=== PATIENT | male | born 1965 | race Caucasian/White ===

== ENCOUNTER 2017-03-31 09:42 | Emergency (ER) | payer SELFPAY ==
[~2017-03-31] VITALS: Ht 170.2 cm; Wt 60.0 kg
[~2017-03-31 09:42] MED LIST: QUET100 PO
[2017-03-31 09:43] VITALS: BP 100/59; PULSE 80; RESP 15; TEMP 98.2; O2SAT 100
--- NOTE | 2017-03-31 10:01 | PD ---
HPI Chief Complaint: Abdominal Pain Time Seen by Provider: 10:01 Travel History International Travel<30 days: No Contact w/Intl Traveler<30days: No Traveled to known affect area: No History of Present Illness HPI 51-year-old male came to the emergency room with history of right inguinal hernia that he noticed yesterday. Patient says that was the first time he noticed a bump. He was able to push it back in. He is here now because he has some burning sensation down there. No history of vomiting. Patient says is occasionally constipated. He does a child where he was lifting heavy weights. Vital signs were stable in triage. [facility] Past Medical History Narrative Medical List of his past medical, surgical, social and family history was reviewed from the nursing note. Bipolar Disorder: Yes Anxiety: Yes Depression: Yes Diminished Hearing: No Immunizations Current: Yes Past Surgical History Other Surgery: Yes (FACIAL RECONSTRUCTION) Social History Alcohol Use: Yes (ABOUT 3 TIMES PER WEEK) Tobacco Use: Yes (1 PPD) Substance Use: Yes (COCAINE) Allergies-Medications (Allergen,Severity, Reaction): Coded Allergies: Mellaril (Verified Allergy, Severe, TONGUE SWELLING, 08/07/16) Comments List of his allergies reviewed from the nursing note. Reported Meds & Prescriptions Reported Meds & Active Scripts Active Miralax Powder (Polyethylene Glycol 3350 Powder) 17 Gm Powd 17 Gm PO DAILY Mix and dissolve one measuring cap-ful (17 grams) in water or juice. Quetiapine Fumarate 100 Mg Tab 100 Mg PO HS 4 Days Narrative Medication List of his home medications reviewed from the nursing note. Review of Systems Except as stated in HPI: all other systems reviewed are Neg Physical Exam Narrative GENERAL: Awake, alert, no obvious distress SKIN: Focused skin assessment warm/dry. HEAD: Atraumatic. Normocephalic. EYES: Pupils equal and round. No scleral icterus. No injection or drainage. ENT: No nasal bleeding or discharge. Mucous membranes pink and moist. NECK: Trachea midline. No JVD. CARDIOVASCULAR: Regular rate and rhythm. No murmur appreciated. RESPIRATORY: No accessory muscle use. Clear to auscultation. Breath sounds equal bilaterally. GASTROINTESTINAL: Abdomen soft, non-tender, nondistended. Hepatic and splenic margins not palpable. Right sided inguinal ring is patent and I can introduce to fingers. No incarcerated hernia. MUSCULOSKELETAL: No obvious deformities. No clubbing. No cyanosis. No edema. NEUROLOGICAL: Awake and alert. No obvious cranial nerve deficits. Motor grossly within normal limits. Normal speech. PSYCHIATRIC: Appropriate mood and affect; insight and judgment normal. Data Data Last Documented VS Vital Signs Date Time Temp Pulse Resp B/P Pulse Ox O2 Delivery O2 Flow Rate FiO2 03/31/17 10:12 78 16 111/73 99 Room Air 03/31/17 09:43 98.2 MDM Medical Decision Making Medical Screen Exam Complete: Yes Emergency Medical Condition: Yes Medical Record Reviewed: Yes Differential Diagnosis Inguinal hernia Narrative Course 10:08 AM patient will be discharged home. He was given instructions. I'll give him the name of the general surgeon who is on today so that he can make an appointment to get an elective surgery. Procedures EKG Prior to Arrival: No Diagnosis Primary Impression: Inguinal hernia Qualified Code: K40.90 - Unilateral inguinal hernia without obstruction or gangrene, recurrence not specified Referrals: Stanislaw Mobley MD 2 days Additional Instructions: Please return to the ER if the condition worsens or any other new concerns. As long as the loops of intestine that's herniating out can be pushed back in you will be okay. Once you are unable to do that and they are strangulated you need to come back to the emergency room. Do not lift any heavy weight since it will make the hernia worse. Try to get some abdominal wall support belts. Call the surgeon whose name and number been given to you for an appointment for elective surgery. Constipation will make it worse especially when you try to strain. Hence he should take the stool softener at all times still the hernias fixed. Med/Other Pt SpecificInfo: Prescription(s) given Scripts Polyethylene Glycol 3350 Powder (Miralax Powder)17 Gm Powd17 Gm PO DAILY #1 BOTTLE Ref 0 Mix and dissolve one measuring cap-ful (17 grams) in water or juice. Prov:Gabo Vilchis MD 03/31/17 Disposition: 01 DISCHARGE HOME Condition: Stable Gabo Vilchis MD March 31, 2017 10:01
[2017-03-31] MEDS ORDERED: MIRA33504 PO (10:11)
[2017-03-31 10:12] VITALS: BP 111/73; PULSE 78; RESP 16; O2SAT 99
== END 2017-03-31 10:48 | disposition home or self-care (01) ==
LOC: NEPD 09:42
DX: K40.90 Unilateral inguinal hernia, without obstruction or gangrene, not specified as recurrent (principal)
CPT/HCPCS: 99283

== ENCOUNTER 2017-04-03 07:47 | Emergency (ER) | payer SELFPAY ==
[~2017-04-03] VITALS: Ht 170.2 cm; Wt 59.0 kg
[~2017-04-03 07:47] MED LIST changes: +MIRA33504 PO
[2017-04-03 07:49] VITALS: BP 116/70; PULSE 80; RESP 20; TEMP 98.6; O2SAT 98
--- NOTE | 2017-04-03 08:12 | PD ---
HPI Chief Complaint: Psychiatric Symptoms Time Seen by Provider: 07:59 Travel History International Travel<30 days: No Contact w/Intl Traveler<30days: No Traveled to known affect area: No History of Present Illness HPI 51-year-old male presents with increasing suicidal thoughts over the past week. He states yesterday he went to [facility] and hearing talk about demons made him have difficulty sleeping and with increased thoughts of wanting to hurt himself. He states he has access to knives and has cut himself before but states this time he would just hang himself and get it over with. He denies other complaints at this time. He states that he has been drug and alcohol free for at least a year now. PFSH Past Medical History Bipolar Disorder: Yes Anxiety: Yes Depression: Yes Diminished Hearing: No Immunizations Current: Yes Past Surgical History Other Surgery: Yes (FACIAL RECONSTRUCTION) Social History Alcohol Use: No Tobacco Use: Yes Substance Use: Yes (COCAINE) Allergies-Medications (Allergen,Severity, Reaction): Coded Allergies: Mellaril (Verified Allergy, Severe, TONGUE SWELLING, 08/07/16) Reported Meds & Prescriptions Reported Meds & Active Scripts Active No Active Prescriptions or Reported Medications Review of Systems Except as stated in HPI: all other systems reviewed are Neg Physical Exam Narrative GENERAL: Well-nourished, well-developed patient. SKIN: Warm and dry. HEAD: Normocephalic and atraumatic. EYES: No injection or drainage. ENT: No nasal drainage noted. NECK: Supple, trachea midline. CARDIOVASCULAR: Regular rate and rhythm RESPIRATORY: No increased effort. No accessory muscle use. GASTROINTESTINAL: Abdomen soft, non-tender, nondistended. NEUROLOGICAL: Awake and alert. Motor and sensory grossly within normal limits. Normal speech. Data Data Last Documented VS Vital Signs Date Time Temp Pulse Resp B/P Pulse Ox O2 Delivery O2 Flow Rate FiO2 04/03/17 08:02 18 04/03/17 07:49 98.6 80 116/70 98 Room Air Orders Complete Blood Count With Diff (04/03/17 08:00) Basic Metabolic Panel (Bmp) (04/03/17 08:00) Psych Screen (04/03/17 08:00) Drug Screen, Random Urine (04/03/17 08:00) Alcohol (Ethanol) (04/03/17 08:00) Diet Regular Basic (04/03/17 Dinner) Labs Laboratory Tests Test 04/03/17 04/03/17 08:06 08:42 White Blood Count 4.3 TH/MM3 Red Blood Count 4.52 MIL/MM3 Hemoglobin 14.6 GM/DL Hematocrit 44.0 % Mean Corpuscular Volume 97.3 FL Mean Corpuscular Hemoglobin 32.3 PG Mean Corpuscular Hemoglobin 33.2 % Concent Red Cell Distribution Width 13.3 % Platelet Count 170 TH/MM3 Mean Platelet Volume 7.6 FL Neutrophils (%) (Auto) 52.4 % Lymphocytes (%) (Auto) 33.3 % Monocytes (%) (Auto) 11.5 % Eosinophils (%) (Auto) 1.6 % Basophils (%) (Auto) 1.2 % Neutrophils # (Auto) 2.2 TH/MM3 Lymphocytes # (Auto) 1.4 TH/MM3 Monocytes # (Auto) 0.5 TH/MM3 Eosinophils # (Auto) 0.1 TH/MM3 Basophils # (Auto) 0.1 TH/MM3 CBC Comment DIFF FINAL Differential Comment Sodium Level 141 MEQ/L Potassium Level 4.1 MEQ/L Chloride Level 106 MEQ/L Carbon Dioxide Level 31.1 MEQ/L Anion Gap 4 MEQ/L Blood Urea Nitrogen 13 MG/DL Creatinine 0.99 MG/DL Estimat Glomerular Filtration 79 ML/MIN Rate Random Glucose 86 MG/DL Calcium Level 9.3 MG/DL Ethyl Alcohol Level LESS THAN 3 MG/DL Urine Opiates Screen NEG Urine Barbiturates Screen NEG Urine Amphetamines Screen NEG Urine Benzodiazepines Screen NEG Urine Cocaine Screen NEG Urine Cannabinoids Screen NEG MDM Medical Decision Making Medical Screen Exam Complete: Yes Emergency Medical Condition: Yes Medical Record Reviewed: Yes (past history confirmed) Interpretation(s) CBC & BMP Diagram 04/03/17 08:06 Differential Diagnosis Depression, electrolyte abnormality, anxiety, suicidal ideation Narrative Course Will check blood work for medical clearance. Patient will be closely monitored and Mental health screening discussed with the patient. Psychiatric screen ordered. He understands if he changes his mind I will place a Freeman act as he is not safe for discharge labs wnl, medically cleared Diagnosis Primary Impression: Depressed affect Scripts No Active Prescriptions or Reported Meds Herlinda Parks MD April 03, 2017 08:12
[2017-04-03 08:36] LABS: AUTOMATED NEUTROPHIL # 2.2 TH/MM3 (1.8-7.7); BASOPHIL # 0.1 TH/MM3 (0-0.2); BASOPHIL % 1.2 % (0.0-2.0); EOSINOPHIL # 0.1 TH/MM3 (0-0.4); EOSINOPHIL % 1.6 % (0.0-4.0); HEMO FLAGS DIFF FINAL; LYMPH % 33.3 % (9.0-44.0); LYMPHOCYTE # 1.4 TH/MM3 (1.0-4.8); MEAN CELL VOLUME 97.3 FL (80.0-100.0); MEAN CORPUSCULAR HEMOGLOBIN 32.3 PG (27.0-34.0); MEAN CORPUSCULAR HGB CONC 33.2 % (32.0-36.0); MONO % 11.5 % (0.0-8.0); NEUT % 52.4 % (16.0-70.0); PLATELET COUNT 170 TH/MM3 (150-450); RED BLOOD COUNT 4.52 MIL/MM3 (4.50-5.90); RED CELL DISTRIBUTION WIDTH 13.3 % (11.6-17.2); WHITE BLOOD COUNT 4.3 TH/MM3 (4.0-11.0)
[2017-04-03 08:52] LABS: ANION GAP 4 MEQ/L (5-15); BICARBONATE 31.1 MEQ/L (21.0-32.0); BLOOD UREA NITROGEN 13 MG/DL (7-18); CHLORIDE 106 MEQ/L (98-107); GLOMERULAR FILTRATION RATE 79 ML/MIN (>89); POTASSIUM 4.1 MEQ/L (3.5-5.1); SODIUM (NA) 141 MEQ/L (136-145)
[2017-04-03 09:12] LABS: AMPHETAMINE, URINE NEG (NEG); BARBITURATES, URINE NEG (NEG); COCAINE, URINE NEG (NEG)
[2017-04-03 17:46] VITALS: BP 130/79; PULSE 90; RESP 20; TEMP 98; O2SAT 95
== END 2017-04-03 18:20 | disposition home or self-care (01) ==
LOC: NEPE 07:47 → NEPJ 18:20
DX: F32.9 Major depressive disorder, single episode, unspecified (principal); F14.90 Cocaine use, unspecified, uncomplicated; Z72.0 Tobacco use
CPT/HCPCS: 80048; 80307; 85025; 99284

== ENCOUNTER 2017-07-10 13:58 | Emergency (ER) | payer OTHER ==
[~2017-07-10] VITALS: Ht 172.7 cm; Wt 62.0 kg
[2017-07-10 14:00] VITALS: BP 101/69; PULSE 98; RESP 15; TEMP 98.3; O2SAT 96
--- NOTE | 2017-07-10 14:05 | PD ---
Physical Exam Date Seen by Provider: Jul 10, 2017 Time Seen by Provider: 14:04 Narrative 52 YOWM C/O R INGUINAL HERNIA.X 2-3 MONTHS. ALSO L ARM RASH Data Data Last Documented VS Vital Signs Date Time Temp Pulse Resp B/P Pulse Ox O2 Delivery O2 Flow Rate FiO2 07/10/17 14:00 98.3 98 15 101/69 96 MDM Supervised Visit with SALLIE: No Scripts No Active Prescriptions or Reported Meds Jacek Ibrahim Jul 10, 2017 14:05
--- NOTE | 2017-07-10 18:06 | PD ---
HPI Chief Complaint: Abdominal Pain Time Seen by Provider: 18:05 Travel History International Travel<30 days: No Contact w/Intl Traveler<30days: No Traveled to known affect area: No History of Present Illness HPI 52 year old male presents to the emergency department for evaluation of abdominal pain for 2 days. Patient states he has right hernia for several months. He states that it well, now every time he stands up. He has pain in this location, but also diffuse abdominal pain. He is unsure if they are related. He denies any fevers or chills. No chest pain shortness breath. No nausea or vomiting. No diarrhea or constipation. He denies a previous abdominal surgeries. He has not followed up with her primary care physician or general surgeon for his hernia. PFSH Past Medical History Bipolar Disorder: Yes Anxiety: Yes Depression: Yes Diminished Hearing: No Immunizations Current: Yes Past Surgical History Other Surgery: Yes (FACIAL RECONSTRUCTION) Social History Alcohol Use: No (DENIES) Tobacco Use: Yes Substance Use: No (REPORTS BEING CLEAN AND SOBER FOR 6 MONTHS) Allergies-Medications (Allergen,Severity, Reaction): Coded Allergies: thioridazine (Unverified Allergy, Severe, TONGUE SWELLING, 07/10/17) Reported Meds & Prescriptions Reported Meds & Active Scripts Active No Active Prescriptions or Reported Medications Review of Systems Except as stated in HPI: all other systems reviewed are Neg Physical Exam Narrative GENERAL: Well-nourished, well-developed male patient, afebrile. SKIN: Focused skin assessment warm/dry. HEAD: Normocephalic. Atraumatic. EYES: No scleral icterus. No injection or drainage. NECK: Supple, trachea midline. No JVD or lymphadenopathy. CARDIOVASCULAR: Regular rate and rhythm without murmurs, gallops, or rubs. RESPIRATORY: Breath sounds equal bilaterally. No accessory muscle use. Lungs sounds are clear to auscultation. GASTROINTESTINAL: Abdomen soft and nondistended. Patient has diffuse tenderness to palpation, worse the left lower quadrant. He has right inguinal hernia that is easily reducible. MUSCULOSKELETAL: No cyanosis, or edema. BACK: Nontender without obvious deformity. No CVA tenderness. Data Data Last Documented VS Vital Signs Date Time Temp Pulse Resp B/P Pulse Ox O2 Delivery O2 Flow Rate FiO2 07/10/17 19:08 72 16 114/75 99 Room Air 07/10/17 14:00 98.3 Orders Complete Blood Count With Diff (07/10/17 18:01) Comprehensive Metabolic Panel (07/10/17 18:01) Lipase (07/10/17 18:01) Ct Abd/Pel W Iv Contrast(Rout) (07/10/17 18:01) Iv Access Insert/Monitor (07/10/17 18:01) Ecg Monitoring (07/10/17 18:01) Oximetry (07/10/17 18:01) Sodium Chloride 0.9% Flush (Ns Flush) (07/10/17 18:15) Urinalysis - C+S If Indicated (07/10/17 18:01) Oral Contrast - Adult (07/10/17 18:16) Diatrizoate Liq ( Gastroview Liq) (07/10/17 18:30) Iohexol 350 Inj (Omnipaque 350 Inj) (07/10/17 20:03) Labs Laboratory Tests Test 07/10/17 18:30 White Blood Count 5.7 TH/MM3 Red Blood Count 4.79 MIL/MM3 Hemoglobin 16.0 GM/DL Hematocrit 46.6 % Mean Corpuscular Volume 97.2 FL Mean Corpuscular Hemoglobin 33.4 PG Mean Corpuscular Hemoglobin 34.4 % Concent Red Cell Distribution Width 13.0 % Platelet Count 185 TH/MM3 Mean Platelet Volume 8.4 FL Neutrophils (%) (Auto) 43.3 % Lymphocytes (%) (Auto) 39.0 % Monocytes (%) (Auto) 7.6 % Eosinophils (%) (Auto) 3.0 % Basophils (%) (Auto) 7.1 % Neutrophils # (Auto) 2.4 TH/MM3 Lymphocytes # (Auto) 2.2 TH/MM3 Monocytes # (Auto) 0.4 TH/MM3 Eosinophils # (Auto) 0.2 TH/MM3 Basophils # (Auto) 0.4 TH/MM3 CBC Comment DIFF FINAL Differential Comment Sodium Level 139 MEQ/L Potassium Level 4.6 MEQ/L Chloride Level 105 MEQ/L Carbon Dioxide Level 28.4 MEQ/L Anion Gap 6 MEQ/L Blood Urea Nitrogen 17 MG/DL Creatinine 0.83 MG/DL Estimat Glomerular Filtration 97 ML/MIN Rate Random Glucose 91 MG/DL Calcium Level 9.1 MG/DL Total Bilirubin 0.4 MG/DL Aspartate Amino Transf 78 U/L (AST/SGOT) Alanine Aminotransferase 146 U/L (ALT/SGPT) Alkaline Phosphatase 59 U/L Total Protein 8.2 GM/DL Albumin 4.2 GM/DL Lipase 117 U/L [facility] Medical Decision Making Medical Screen Exam Complete: Yes Emergency Medical Condition: Yes Medical Record Reviewed: Yes Interpretation(s) Last Impressions Abdomen/Pelvis CT 07/10/17 1801 Signed Impressions: Service Date/Time: June 19:54 - CONCLUSION: 1. No acute findings. Mild constipation. Appendix appears normal. No hydronephrosis or obstructive uropathy. Small hiatal hernia. Jacek Egan MD Differential Diagnosis Reducible hernia versus diverticulitis versus pancreatitis versus gastritis Narrative Course 52-year-old male presents to the emergency department for evaluation of abdominal pain for 2 days. CBC, CMP, lipase, UA, CT abdomen/pelvis are ordered and pending. CBC shows no acute abnormality. CMP shows elevated AST ALT, no acute changes. Lipase is 117. CT abdomen/pelvis shows no acute findings. Mild constipation. Appendix appears normal. No hydronephrosis or obstructive uropathy. Small hiatal hernia. Laboratory results and imaging is reassuring. Patient instructed to follow-up with his primary care physician or general surgeon. He verbalizes agreement and understanding. The patient was discharged in stable condition with instructions, including return instructions and follow up instructions. Diagnosis Primary Impression: Inguinal hernia Qualified Code: K40.90 - Unilateral inguinal hernia without obstruction or gangrene, recurrence not specified Referrals: Primary Care Physician call for appointment Patient Instructions: General Instructions, Inguinal Hernia (ED) Additional Instructions: Follow-up with your primary care physician and general surgeon for hernia repair. Return to the emergency department for any acute worsening of symptoms Med/Other Pt SpecificInfo: No Change to Meds Scripts No Active Prescriptions or Reported Meds Disposition: DISCHARGE HOME Phyllis Allison SANA Jul 10, 2017 18:06
[2017-07-10] MEDS ORDERED: SODIUM CHLORIDE 0.9% FLUSH 10 ML FLUSH IV FLUSH PRN (18:15)
[2017-07-10 18:20] VITALS: RESP 18; O2SAT 97
[2017-07-10 18:28] VITALS: BP 110/69; PULSE 55; RESP 18; O2SAT 99
[2017-07-10] MEDS ORDERED: DIATRIZOATE MEGLUM/DIATRIZOATE SOD 9 ML CUP ONE (18:30)
[2017-07-10 19:08] VITALS: BP 114/75; PULSE 72; RESP 16; O2SAT 99
[2017-07-10 19:13] LABS: AUTOMATED NEUTROPHIL # 2.4 TH/MM3 (1.8-7.7); BASOPHIL # 0.4 TH/MM3 (0-0.2); BASOPHIL % 7.1 % (0.0-2.0); EOSINOPHIL # 0.2 TH/MM3 (0-0.4); HEMATOCRIT 46.6 % (39.0-51.0); LYMPHOCYTE # 2.2 TH/MM3 (1.0-4.8); MEAN CELL VOLUME 97.2 FL (80.0-100.0); MEAN CORPUSCULAR HEMOGLOBIN 33.4 PG (27.0-34.0); MEAN CORPUSCULAR HGB CONC 34.4 % (32.0-36.0); MONO % 7.6 % (0.0-8.0); NEUT % 43.3 % (16.0-70.0); PLATELET COUNT 185 TH/MM3 (150-450); RED BLOOD COUNT 4.79 MIL/MM3 (4.50-5.90); WHITE BLOOD COUNT 5.7 TH/MM3 (4.0-11.0)
[2017-07-10 19:35] LABS: HEMO FLAGS DIFF FINAL
[2017-07-10 19:36] LABS: ALT (GPT) 146 U/L (12-78); ANION GAP 6 MEQ/L (5-15); AST (GOT) 78 U/L (15-37); BICARBONATE 28.4 MEQ/L (21.0-32.0); BLOOD UREA NITROGEN 17 MG/DL (7-18); CHLORIDE 105 MEQ/L (98-107); GLOMERULAR FILTRATION RATE 97 ML/MIN (>89); POTASSIUM 4.6 MEQ/L (3.5-5.1); SODIUM (NA) 139 MEQ/L (136-145)
[2017-07-10 19:38] LABS: ALKALINE PHOSPHATASE 59 U/L (45-117); TOTAL BILIRUBIN ADULT 0.4 MG/DL (0.2-1.0)
[2017-07-10] MEDS ORDERED: IOHEXOL 350 MG/ML 10 ML VIAL (for RAD DIAG) IV ONE (20:03)
--- NOTE | 2017-07-10 20:32 | RADRPT ---
EXAM DATE/TIME: 07/10/2017 19:54 [facility] COMPARISON: No previous studies available for comparison. INDICATIONS : Lower right sided abdominal pain. IV CONTRAST: 92 cc Omnipaque 350 (iohexol) IV ORAL CONTRAST: No oral contrast ingested. RADIATION DOSE: 9.96 CTDIvol (mGy) MEDICAL HISTORY : Hernia, inguinal. SURGICAL HISTORY : None. ENCOUNTER: Initial ACUITY: 1 day PAIN SCALE: 5/10 LOCATION: Right upper quadrant TECHNIQUE: Volumetric scanning of the abdomen and pelvis was performed. Using automated exposure control and ad justment of the mA and/or kV according to patient size, radiation dose was kept as low as reasonably achievable to obtain optimal diagnostic quality images. DICOM format image data is available electro nically for review and comparison. FINDINGS: Lung bases are clear. No acute findings in the liver, spleen, adrenals, kidneys or pancreas. No gallstones or biliary ducta l dilatation. There is mild constipation. Small hiatal hernia. CONCLUSION: 1. No acute findings. Mild constipation. Appendix appears normal. No hydronephrosis or obstructive ur opathy. Small hiatal hernia. Jacek Egan MD on July 10, 2017 at 20:28 Board Certified Radiologist. This report was verified electronically.
[2017-07-10] MEDS ORDERED: KETOROLAC TROMETHAMINE 30 MG/ML (IVP) VIAL IV PUSH ONE (21:00)
[2017-07-10 21:06] VITALS: BP 116/80
[2017-07-10 21:23] LABS: BLOOD, URINE NEG (NEG); GLUCOSE,URINE NEG (NEG); KETONE, URINE NEG (NEG); NITRITE,URINE NEG (NEG); PH, URINE 6.5 (5.0-8.5); URINE COLOR LIGHT-YELLOW (YELLW/STRAW)
[2017-07-10 21:28] LABS: COMMENT (UR) CULT NOT INDICATED; CULTURE IF INDICATED CULT NOT INDICATED
== END 2017-07-10 21:13 | disposition home or self-care (01) ==
LOC: NEPD 13:58 → NED 13:58 → NEPD 21:13
DX: K40.90 Unilateral inguinal hernia, without obstruction or gangrene, not specified as recurrent (principal); K59.00 Constipation, unspecified; K44.9 Diaphragmatic hernia without obstruction or gangrene; F31.9 Bipolar disorder, unspecified; F41.9 Anxiety disorder, unspecified; Z72.0 Tobacco use
CPT/HCPCS: 74177; 80053; 81001; 83690; 85025; 96374; 99285; J1885; Q9963; Q9967

== ENCOUNTER 2017-11-27 10:01 | Emergency (ER) | payer OTHER ==
[~2017-11-27] VITALS: Ht 172.7 cm; Wt 58.0 kg
[2017-11-27 10:12] VITALS: BP_SYST 109; BP_DIAS 10; BP_DIAS 70; PULSE 80; RESP 15; TEMP 98; O2SAT 99
--- NOTE | 2017-11-27 10:21 | PD ---
HPI Chief Complaint: si Time Seen by Provider: 10:12 Travel History International Travel<30 days: No Contact w/Intl Traveler<30days: No Traveled to known affect area: No History of Present Illness HPI brought in by freddy HAMPTON due to suicidal threats made about using drugs to kill himself...roland acted by freddy hampton. patient denies any ingestions does state that he has taken crack cocaine today, and has been off his meds for at least 3 months (seroquel). PFSH Past Medical History Bipolar Disorder: Yes Anxiety: Yes Depression: Yes Diminished Hearing: No Immunizations Current: Yes Past Surgical History Other Surgery: Yes (FACIAL RECONSTRUCTION) Social History Alcohol Use: No (DENIES) Tobacco Use: Yes (11/25 ppd) Substance Use: No (REPORTS BEING CLEAN AND SOBER FOR 11 MONTHS) Allergies-Medications (Allergen,Severity, Reaction): Coded Allergies: thioridazine (Unverified Allergy, Severe, TONGUE SWELLING, 11/27/17) Reported Meds & Prescriptions Reported Meds & Active Scripts Active No Active Prescriptions or Reported Medications Review of Systems Except as stated in HPI: all other systems reviewed are Neg General / Constitutional: No: Fever Eyes: No: Visual changes HENT: No: Headaches Cardiovascular: No: Chest Pain or Discomfort Respiratory: No: Shortness of Breath Gastrointestinal: No: Abdominal Pain Genitourinary: No: Dysuria Musculoskeletal: No: Pain Skin: No Rash Neurologic: No: Weakness Psychiatric: Positive: Suicidal Ideations Endocrine: No: Polydipsia Hematologic/Lymphatic: No: Easy Bruising Physical Exam Narrative GENERAL: SKIN: Warm and dry. HEAD: Atraumatic. Normocephalic. EYES: Pupils equal and round. No scleral icterus. No injection or drainage. ENT: No nasal bleeding or discharge. Mucous membranes pink and moist. NECK: Trachea midline. No JVD. CARDIOVASCULAR: Regular rate and rhythm. RESPIRATORY: No accessory muscle use. Clear to auscultation. Breath sounds equal bilaterally. GASTROINTESTINAL: Abdomen soft, non-tender, nondistended. MUSCULOSKELETAL: Extremities without clubbing, cyanosis, or edema. No obvious deformities. NEUROLOGICAL: Awake and alert. No obvious cranial nerve deficits. Motor grossly within normal limits. Five out of 5 muscle strength in the arms and legs. Normal speech. PSYCHIATRIC:depressed mood and sad affect; Data Data Last Documented VS Orders Orders Complete Blood Count With Diff (11/27/17 10:12) Comprehensive Metabolic Panel (11/27/17 10:12) Urinalysis - C+S If Indicated (11/27/17 10:12) Electrocardiogram (11/27/17 10:12) Psych Screen (11/27/17 10:12) Drug Screen, Random Urine (11/27/17 10:12) Alcohol (Ethanol) (11/27/17 10:12) Salicylates (Aspirin) (11/27/17 10:12) Tylenol (Acetaminophen) (11/27/17 10:12) Diet Regular Basic (11/27/17 Lunch) Labs Laboratory Tests Test 11/27/17 10:37 11/27/17 11:19 White Blood Count 7.1 TH/MM3 Red Blood Count 4.58 MIL/MM3 Hemoglobin 15.9 GM/DL Hematocrit 45.2 % Mean Corpuscular Volume 98.6 FL Mean Corpuscular Hemoglobin 34.6 PG Mean Corpuscular Hemoglobin Concent 35.1 % Red Cell Distribution Width 13.1 % Platelet Count 178 TH/MM3 Mean Platelet Volume 7.9 FL Neutrophils (%) (Auto) 64.3 % Lymphocytes (%) (Auto) 23.9 % Monocytes (%) (Auto) 6.3 % Eosinophils (%) (Auto) 4.6 % Basophils (%) (Auto) 0.9 % Neutrophils # (Auto) 4.5 TH/MM3 Lymphocytes # (Auto) 1.7 TH/MM3 Monocytes # (Auto) 0.4 TH/MM3 Eosinophils # (Auto) 0.3 TH/MM3 Basophils # (Auto) 0.1 TH/MM3 CBC Comment DIFF FINAL Differential Comment Blood Urea Nitrogen 12 MG/DL Creatinine 0.79 MG/DL Random Glucose 77 MG/DL Total Protein 8.0 GM/DL Albumin 4.1 GM/DL Calcium Level 8.9 MG/DL Alkaline Phosphatase 50 U/L Aspartate Amino Transf (AST/SGOT) 33 U/L Alanine Aminotransferase (ALT/SGPT) 47 U/L Total Bilirubin 0.9 MG/DL Sodium Level 139 MEQ/L Potassium Level 4.2 MEQ/L Chloride Level 105 MEQ/L Carbon Dioxide Level 28.8 MEQ/L Anion Gap 5 MEQ/L Estimat Glomerular Filtration Rate 103 ML/MIN Salicylates Level 4.2 MG/DL Acetaminophen Level LESS THAN 2.0 MCG/ML Ethyl Alcohol Level LESS THAN 3 MG/DL Urine Color YELLOW Urine Turbidity CLEAR Urine pH 7.0 Urine Specific [place] 1.011 Urine Protein NEG mg/dL Urine Glucose (UA) NEG mg/dL Urine Ketones TRACE mg/dL Urine Occult Blood NEG Urine Nitrite NEG Urine Bilirubin NEG Urine Urobilinogen 4.0 MG/DL Urine Leukocyte Esterase NEG Urine RBC LESS THAN 1 /hpf Urine WBC LESS THAN 1 /hpf Urine Amorphous Sediment RARE Urine Mucus FEW /lpf Microscopic Urinalysis Comment CULT NOT INDICATED Urine Opiates Screen NEG Urine Barbiturates Screen NEG Urine Amphetamines Screen NEG Urine Benzodiazepines Screen NEG Urine Cocaine Screen POS Urine Cannabinoids Screen NEG MDM Medical Decision Making Medical Screen Exam Complete: Yes Emergency Medical Condition: Yes Medical Record Reviewed: Yes Interpretation(s) nsr, 60, nl intervals, no stemi pattern Differential Diagnosis electrolyte abnl v tox ingestions v anemia v leukocytosis Narrative Course cbc was normal, without anemia or leukocytosis.....ua neg for uti, tox screen positive for cocaine which patient admitted to. patient is medically cleared for psychiatric evaluation Diagnosis Primary Impression: luan act -medically cleared Admitting Information Admitting Physician Requests: Observation Scripts No Active Prescriptions or Reported Meds Ramesh Neil MD Nov 27, 2017 10:21
[2017-11-27 10:57] LABS: AUTOMATED NEUTROPHIL # 4.5 TH/MM3 (1.8-7.7); BASOPHIL # 0.1 TH/MM3 (0-0.2); BASOPHIL % 0.9 % (0.0-2.0); EOSINOPHIL # 0.3 TH/MM3 (0-0.4); EOSINOPHIL % 4.6 % (0.0-4.0); HEMATOCRIT 45.2 % (39.0-51.0); HEMOGLOBIN 15.9 GM/DL (13.0-17.0); LYMPH % 23.9 % (9.0-44.0); LYMPHOCYTE # 1.7 TH/MM3 (1.0-4.8); MEAN CELL VOLUME 98.6 FL (80.0-100.0); MEAN CORPUSCULAR HEMOGLOBIN 34.6 PG (27.0-34.0); MEAN CORPUSCULAR HGB CONC 35.1 % (32.0-36.0); MEAN PLATELET VOLUME 7.9 FL (7.0-11.0); MONO % 6.3 % (0.0-8.0); MONOCYTE # 0.4 TH/MM3 (0-0.9); NEUT % 64.3 % (16.0-70.0); PLATELET COUNT 178 TH/MM3 (150-450); RED BLOOD COUNT 4.58 MIL/MM3 (4.50-5.90); RED CELL DISTRIBUTION WIDTH 13.1 % (11.6-17.2); WHITE BLOOD COUNT 7.1 TH/MM3 (4.0-11.0)
[2017-11-27 11:11] LABS: ALBUMIN 4.1 GM/DL (3.4-5.0); ALT (GPT) 47 U/L (12-78); AST (GOT) 33 U/L (15-37); BICARBONATE 28.8 MEQ/L (21.0-32.0); BLOOD UREA NITROGEN 12 MG/DL (7-18); CALCIUM 8.9 MG/DL (8.5-10.1); CHLORIDE 105 MEQ/L (98-107); CREATININE 0.79 MG/DL (0.60-1.30); GLOMERULAR FILTRATION RATE 103 ML/MIN (>89); GLUCOSE,RANDOM 77 MG/DL (74-106); SODIUM (NA) 139 MEQ/L (136-145)
[2017-11-27 11:13] LABS: ALKALINE PHOSPHATASE 50 U/L (45-117); TOTAL BILIRUBIN ADULT 0.9 MG/DL (0.2-1.0)
[2017-11-27 11:15] LABS: ACETAMINOPHEN LESS THAN 2.0 MCG/ML (10.0-30.0)
[2017-11-27 11:39] LABS: AMORPHOUS SEDIMENT, URINE RARE; BILIRUBIN, URINE NEG (NEG); BLOOD, URINE NEG (NEG); GLUCOSE,URINE NEG (NEG); KETONE, URINE TRACE mg/dL (NEG); MUCUS URINE FEW /lpf (OCC); NITRITE,URINE NEG (NEG); URINE COLOR YELLOW (YELLW/STRAW); URINE LEUKOCYTE ESTERASE NEG (NEG)
[2017-11-27 11:51] VITALS: BP 116/74; PULSE 84; RESP 18; TEMP 97.7; O2SAT 100
[2017-11-27 15:15] VITALS: BP 116/74; PULSE 84; RESP 18; O2SAT 100
--- NOTE | 2017-11-28 18:30 | EKG ---
Date Performed: 11/27/2017 Time Performed: 10:35:01 PTAGE: 52 years EKG: Sinus rhythm NORMAL ECG PREVIOUS TRACING : 04/15/2015 02.26 DOCTOR: Alfredo Ash Interpretating Date/Time 11/28/2017 18:29:34
== END 2017-11-27 15:59 ==
LOC: NEPD 10:01 → NEPJ 15:59
DX: Z04.6 Encounter for general psychiatric examination, requested by authority (principal); R45.851 Suicidal ideations; F31.9 Bipolar disorder, unspecified; F41.9 Anxiety disorder, unspecified; F17.200 Nicotine dependence, unspecified, uncomplicated; F14.90 Cocaine use, unspecified, uncomplicated; Z79.899 Other long term (current) drug therapy
CPT/HCPCS: 80053; 80307; 81001; 85025; 93005; 99284